=== PATIENT | male | born 1990 | race Native Hawaiian/Other Pacific Islander ===

== ENCOUNTER 2024-02-05 11:04 | Inpatient (IN) | payer OTHER ==
[~2024-02-05] VITALS: Ht 185.4 cm; Wt 140.3 kg
[2024-02-05 16:00] VITALS: BP 140/88; PULSE 75; RESP 18; TEMP 97.9; O2SAT 95
[2024-02-05 16:20] VITALS: BP 140/88; PULSE 75; RESP 18; TEMP 97.9; O2SAT 95
[2024-02-05] MEDS ORDERED: ALLO300T2 PO (17:28)
[2024-02-05] MEDS ORDERED: IBUP-1455 PO (17:28)
[2024-02-05] MEDS ORDERED: VANCOMYCIN PER PHARMACY 0 MG IV SCH (17:30)
[2024-02-05] MEDS ORDERED: ACETAMINOPHEN 325 MG TAB PO PRN (17:30)
[2024-02-05 18:41] LABS: Basophils # (auto) 0.1 10 ^3/uL (0-0.2); Basophils % (auto) 0.6 % (0.0-2.0); Eosinophils # (auto) 0.2 10 ^3/uL (0-0.8); Eosinophils % (auto) 2.6 % (0.0-7.0); Hematocrit 46.7 % (41.0-53.0); Hemoglobin 15.9 g/dL (13.5-17.5); Lymphocytes # (auto) 2.7 10 ^3/uL (0.4-5.4); Lymphocytes % (auto) 28.5 % (10.0-50.0); Mean Corpuscular Hgb Conc. 34.1 g/dL (32.0-36.0); Mean Corpuscular Volume 93.9 fL (80.0-100.0); Monocytes # (auto) 0.4 10 ^3/uL (0-1.3); Monocytes % (auto) 4.2 % (0.0-12.0); Neutrophils % (auto) 64.1 % (37.0-80.0); Nucleated Red Blood Cells % 0.2 %; Red Blood Cells 4.98 10^6/uL (4.5-5.90); Red Cell Distribution Width 13.2 % (11.8-14.3); White Blood Cell 9.3 10^3/uL (4.4-10.8)
[2024-02-05 18:52] LABS: Chloride 108 mmol/L (98-107); Potassium 3.5 mmol/L (3.5-5.1); Sodium 140 mmol/L (136-145)
[2024-02-05 18:53] LABS: Anion Gap 8 (5-15); Calcium 10.1 mg/dL (8.5-10.1); Carbon Dioxide 24 mmol/L (20-30)
[2024-02-05 18:56] LABS: INR 1.06 (0.9-1.15); Prothrombin Time 11.2 sec (9.3-11.8)
[2024-02-05 18:58] LABS: BUN/Creatinine Ratio 12.3 (10.0-20.0); Blood Urea Nitrogen 13 mg/dL (9-23); Glucose 147 mg/dL (74-106); LDL Cholesterol 152 mg/dL (< 100); Triglycerides 113 mg/dL (< 150)
[2024-02-05 18:59] LABS: CRP High Sensitivity 0.42 mg/dL (<1.0)
[2024-02-05 19:00] LABS: Cholesterol 207 mg/dL (< 200); HDL Cholesterol 46 mg/dL (40-59)
[2024-02-05 19:24] LABS: Erythrocyte Sedimentation Rate 25 mm/hr (0-20)
[2024-02-05 20:00] VITALS: PULSE 78; RESP 18; O2SAT 0
[2024-02-05 21:28] VITALS: BP 139/81; PULSE 88; RESP 97; TEMP 97.8; O2SAT 96
[2024-02-05] MEDS: SODIUM CHLORIDE 0.9% 1,000 ML IV SCH (22:00)
[2024-02-05] MEDS: VANCOMYCIN 1GM/200ML 200 ML IV ONE (23:15)
[2024-02-05] MEDS: IBUPROFEN 800 MG TAB PO SCH (23:52)
[2024-02-05] MEDS: ASCORBIC ACID 500 MG TAB PO SCH (23:52)
[2024-02-05] MEDS: CLINDAMYCIN 600MG IV 50 ML IV ONE (23:53)
[2024-02-06] VITALS (8 sets, daily range): BP systolic 128–148; BP diastolic 78–97; PULSE 74–100; RESP 14–19; TEMP 97.4–98.1; O2SAT 0–98
[2024-02-06] MEDS: CLINDAMYCIN 600MG IV 50 ML IV SCH (06:27)
[2024-02-06 06:51] LABS: Alanine Aminotransferase 37 U/L (7-40); Albumin 4.5 g/dL (3.2-4.8); Alkaline Phosphatase 74 U/L (46-116); Anion Gap 7 (5-15); Aspartate Aminotransferase 20 U/L (13-40); BUN/Creatinine Ratio 11.3 (10.0-20.0); Blood Urea Nitrogen 12 mg/dL (9-23); Calcium 9.7 mg/dL (8.5-10.1); Carbon Dioxide 24 mmol/L (20-30); Chloride 109 mmol/L (98-107); Glucose 100 mg/dL (74-106); Potassium 4.2 mmol/L (3.5-5.1); Sodium 140 mmol/L (136-145)
[2024-02-06 06:52] LABS: Bilirubin, Total 0.6 mg/dL (0.2-1.0); Total Protein 7.5 g/dL (5.7-8.2)
[2024-02-06] MEDS: VANCOMYCIN 1GM/200ML 200 ML IV ONE (09:02)
[2024-02-06] MEDS: MULTIPLE VITAMIN TAB PO SCH (09:03)
[2024-02-06] MEDS: ALLOPURINOL 100 MG TAB PO SCH (09:03)
[2024-02-06] MEDS: ZINC SULFATE 220mg CAP or TAB PO SCH (09:03)
[2024-02-06] MEDS: DOXYCYCLINE 100 MG TAB/CAP PO ONE (15:44)
[2024-02-06] MEDS ORDERED: VANCOMYCIN PER PHARMACY 0 MG IV SCH (16:00)
[2024-02-06] MEDS ORDERED: VANCOMYCIN 1GM/200ML 200 ML IV SCH (17:00)
[2024-02-06 18:09] LABS: Urine Bacteria None Seen /hpf (None Seen)
[2024-02-06 18:27] LABS: Urine Blood Negative /uL (Negative); Urine Clarity Clear (Clear); Urine Color Light-Yellow (Yellow); Urine Mucus FEW (None Seen); Urine Protein, UAD Negative (Negative); Urine Specific Gravity 1.021 (1.001-1.035); Urine Urobilinogen Normal (Negative); Urine WBC <1 /hpf (0 - 3); Urine pH 5.5 (5.0-9.0)
[2024-02-06] MEDS: cefTRIAXone 1GM/50ML D5W 50 ML IV ONE (18:51)
[2024-02-06] MEDS: VANCOMYCIN 1GM/200ML 200 ML IV SCH (19:30)
[2024-02-06] MEDS ORDERED: AMOXICILLIN/CLAVUL 875 MG TAB PO SCH (22:00)
[2024-02-06] MEDS ORDERED: DOXYCYCLINE 100 MG TAB/CAP PO SCH (22:00)
[2024-02-07] VITALS (8 sets, daily range): BP systolic 125–154; BP diastolic 76–91; PULSE 79–91; RESP 16–20; TEMP 98.1–98.7; O2SAT 0–99
[2024-02-07 05:10] LABS: Basophils # (auto) 0.1 10 ^3/uL (0-0.2); Basophils % (auto) 0.6 % (0.0-2.0); Eosinophils # (auto) 0.3 10 ^3/uL (0-0.8); Eosinophils % (auto) 3.4 % (0.0-7.0); Hematocrit 42.1 % (41.0-53.0); Hemoglobin 14.8 g/dL (13.5-17.5); Lymphocytes # (auto) 2.1 10 ^3/uL (0.4-5.4); Lymphocytes % (auto) 22.6 % (10.0-50.0); Mean Corpuscular Hemoglobin 32.8 pg (28.0-32.0); Mean Corpuscular Hgb Conc. 35.1 g/dL (32.0-36.0); Mean Corpuscular Volume 93.4 fL (80.0-100.0); Monocytes # (auto) 0.9 10 ^3/uL (0-1.3); Monocytes % (auto) 9.2 % (0.0-12.0); Neutrophils # (auto) 6.1 10 ^3/uL (1.6-8.6); Neutrophils % (auto) 64.2 % (37.0-80.0); Nucleated Red Blood Cells % 0.1 %; Red Cell Distribution Width 13.3 % (11.8-14.3); White Blood Cell 9.5 10^3/uL (4.4-10.8)
[2024-02-07 05:34] LABS: CRP High Sensitivity 2.7 mg/dL (<1.0)
[2024-02-07 05:54] LABS: Erythrocyte Sedimentation Rate 27 mm/hr (0-20)
[2024-02-07] MEDS: cefTRIAXone 1GM/50ML D5W 50 ML IV SCH (09:54)
[2024-02-07] MEDS: HYDROcodone-ACET 5/325MG TAB PO PRN (10:21)
[2024-02-07] MEDS: VANCOMYCIN 1GM/200ML 200 ML IV SCH (15:07)
[2024-02-08] VITALS (8 sets, daily range): BP systolic 129–149; BP diastolic 79–99; PULSE 71–85; RESP 18–20; TEMP 97.5–98.8; O2SAT 0–99
[2024-02-08 07:28] LABS: Basophils # (auto) 0 10 ^3/uL (0-0.2); Basophils % (auto) 0.6 % (0.0-2.0); Eosinophils # (auto) 0.3 10 ^3/uL (0-0.8); Eosinophils % (auto) 3.5 % (0.0-7.0); Hematocrit 41.6 % (41.0-53.0); Hemoglobin 14.6 g/dL (13.5-17.5); Lymphocytes # (auto) 1.6 10 ^3/uL (0.4-5.4); Mean Corpuscular Hemoglobin 32.5 pg (28.0-32.0); Mean Corpuscular Volume 92.9 fL (80.0-100.0); Monocytes # (auto) 0.6 10 ^3/uL (0-1.3); Monocytes % (auto) 8.1 % (0.0-12.0); Neutrophils # (auto) 4.6 10 ^3/uL (1.6-8.6); Neutrophils % (auto) 64.8 % (37.0-80.0); Red Blood Cells 4.48 10^6/uL (4.5-5.90); White Blood Cell 7.1 10^3/uL (4.4-10.8)
[2024-02-08 07:45] LABS: Alanine Aminotransferase 33 U/L (7-40); Albumin 4.4 g/dL (3.2-4.8); Alkaline Phosphatase 71 U/L (46-116); Anion Gap 7 (5-15); Aspartate Aminotransferase 22 U/L (13-40); BUN/Creatinine Ratio 10.9 (10.0-20.0); Bilirubin, Total 0.5 mg/dL (0.2-1.0); Blood Urea Nitrogen 10 mg/dL (9-23); Calcium 9.7 mg/dL (8.7-10.4); Carbon Dioxide 25 mmol/L (20-30); Chloride 107 mmol/L (98-107); Glucose 95 mg/dL (74-106); Potassium 3.9 mmol/L (3.5-5.1); Sodium 139 mmol/L (136-145); Total Protein 7.6 g/dL (5.7-8.2)
[2024-02-08 08:10] LABS: Erythrocyte Sedimentation Rate 50 mm/hr (0-20)
[2024-02-09] VITALS (8 sets, daily range): BP systolic 122–142; BP diastolic 71–93; PULSE 60–89; RESP 18–20; TEMP 97.7–98.1; O2SAT 0–99
[2024-02-09] MEDS: VANCOMYCIN 1GM/200ML 200 ML IV SCH (01:15)
[2024-02-10 01:00] VITALS: BP 138/82; PULSE 78; RESP 18; TEMP 97.9; O2SAT 94
[2024-02-10 05:00] VITALS: BP 122/84; PULSE 79; RESP 19; TEMP 97.9; O2SAT 94
[2024-02-10 08:15] VITALS: O2SAT 0
[2024-02-10 09:00] VITALS: BP 134/82; PULSE 72; RESP 20; TEMP 98.3; O2SAT 97
[2024-02-10 13:00] VITALS: BP 137/76; PULSE 62; RESP 20; TEMP 97.7; O2SAT 96
[2024-02-10] MEDS: VANCOMYCIN 1GM/200ML 200 ML IV SCH (15:12)
== END 2024-02-10 17:15 | disposition home or self-care (01) | DRG 540 ==
LOC: UNDOADMIN 15:45 → WEST WING 15:45
PROVIDERS: ADMIT Internal Medicine; ATTEND Internal Medicine
PROC: 0Y9K0ZZ Drainage of Right Ankle Region, Open Approach (ICD-10-PCS; principal; 2024-02-09)
DX: M86.8X7 Other osteomyelitis, ankle and foot (principal); L02.415 Cutaneous abscess of right lower limb; L03.115 Cellulitis of right lower limb; Z68.41 Body mass index [BMI] 40.0-44.9, adult; E66.01 Morbid (severe) obesity due to excess calories; E78.5 Hyperlipidemia, unspecified; F17.210 Nicotine dependence, cigarettes, uncomplicated; M1A.9XX0 Chronic gout, unspecified, without tophus (tophi); Z82.49 Family history of ischemic heart disease and other diseases of the circulatory system; Z79.899 Other long term (current) drug therapy
CPT/HCPCS: 36415; 73630; 73721; 80048; 80053; 80061; 80202; 81001; 82565; 83036; 84443; 85025; 85610; 85652; 86141; 87077; 87186; 87205; G0378; J3490